=== PATIENT | male | born 1970 | race Caucasian/White ===

== ENCOUNTER → 2020-10-22 12:40 | Outpatient (BNVA) | payer MEDICAID, SELFPAY | PROVIDERS: PCP Internal Medicine; Referring Provider Internal Medicine; Visit Provider Physician Assistant | DX: Z12.11 Encounter for screening for malignant neoplasm of colon (principal); Z78.9 Other specified health status | CPT/HCPCS: 99202 ==

== ENCOUNTER 2020-12-24 07:10 | Day surgery (SDC) | payer MEDICAID, SELFPAY ==
[2020-12-24 07:24] VITALS: BP 129/81; PULSE 70; RESP 16; TEMP 35.9; O2SAT 97; BMI 27.4
--- NOTE | 2020-12-24 07:55 | P.CONAN_ITS ---
[facility] Active Problems Active Problems: All Active Problems (Updated 12/17/20 @ 14:44 by Anjelica srinivasan, RN) Encounter for screening colonoscopy (Acute) Manager Motor arranged (Acute) Poor historian (Acute) Past Medical History Medical History (Updated 12/17/20 @ 14:44 by Anjelica Henao, RN) Anxiety and depression Arthritis History of back pain Hyperlipidemia Right shoulder pain Vitamin D deficiency Family History Family History Brother Cancer Maternal Aunt Cancer Diabetes Family history of problems with anesthesia: No Surgical History Surgical History (Updated 12/17/20 @ 13:27 by Anjelica Henao RN) History of bilateral carpal tunnel release History of left inguinal hernia repair History of Problems with Anesthesia: No Social History Social History (Updated 10/22/20 @ 13:38 by Felisa Egan PA-C) Household Members: Significant Other Alcohol intake: current Patient Tobacco Use Status: Never used Tobacco Use of substances other than those prescribed or required for medical reasons: No Are you DNR?: No Advance Directives: No Advance Directives Information Provided: Yes Current occupational status: employed Meds Allergies Allergy/AdvReac Type Severity Reaction Status Date / Time No Known Allergies Allergy Verified 10/22/20 12:57 Home Medications Medication Instructions Recorded Confirmed Last Taken Type atorvastatin 80 mg tablet 80 mg PO DAILY 12/17/20 12/17/20 Unknown History cyclobenzaprine 10 mg tablet 10 mg PO BEDTIME 12/17/20 12/17/20 Unknown History ergocalciferol (vitamin D2) 1,250 1,250 mcg PO QWEEK 12/17/20 12/17/20 Unknown History mcg (50,000 unit) capsule (Vitamin D2) ibuprofen 400 mg tablet 400 mg PO Q6H PRN 12/17/20 12/17/20 Unknown History Exam Exam Date and Time: December 24, 2020 0755 Height,Weight and Vital Signs: Height 5 ft 6 in Weight 77.111 kg Last Vital Signs Temp 96.7 F L 12/24/20 07:24 Pulse 70 12/24/20 07:24 Resp 16 12/24/20 07:24 BP 129/81 12/24/20 07:24 Pulse Ox 97 12/24/20 07:24 Airway Mallampati Class: III TM Dist: >3cm Neck ROM: Full Heart: rrr Lungs: cta Assessment and Plan Assessment Anesthesia Assessment: Anesthesia Plan Discussed and Chart Reviewed Final Anesthetic Review Family History of Problems with Anesthesia: No History of Problems with Anesthesia: No NPO: Yes ASA Class: III Final Preanesthetic Review: No Changes in Pt Med Stat, Meds/Allgs Chart Reviewed and Consent Obtained/Reviewed Patient Risk: Intermediate Procedure Risk: Intermediate Anesthetic Plan Anesthetic Plan: MAC: Disposition: Standard PACU
[2020-12-24] MEDS: Lactated Ringers 1,000 ML 50 ML IVCONT (08:33)
--- NOTE | 2020-12-24 09:14 | P.HPSUR_ITS ---
Pre-Procedural Eval Section A Date of Service: 12/24/20 Section B Chief Complaint: screening Relevant Family History (Specify if Yes): No Relevant Social History: None Present Medications: see Short Stay Collaborative assessment Medical History: Significant History (Anxiety and depression Arthritis History of back pain Hyperlipidemia Right shoulder pain Vitamin D deficiency) History of Previous Operations: Relevant previous surgery/procedure and date(s) (inguinal hernia, carpal tunnel) Allergies: Allergies Allergy/AdvReac Type Severity Reaction Status Date / Time No Known Allergies Allergy Verified 10/22/20 12:57 Review of Systems Sugical H&P ROS: Negative: Constitution, Cardiovascular, Respiratory, Neurological, Psychiatric, Hem-Onc, Allergic/Immunologic, Gastrointestinal, Genitourinary, Musculoskeletal, Integumentary, Endocrine and Eyes/Ears/Nose /Throat Exam Surgical H&P Exam: Normal: HEENT, Normal: Heart, Normal: Lungs, Normal: Extremities, Normal: Abdomen, Normal: Skin and Normal: Neurological Plan Diagnosis/Plan: Unchanged I have reviewed the history and physical and performed a pertinent physical examination on my patient. No changes have occurred unless specified.
--- NOTE | 2020-12-24 09:16 | P.BOP_ITS ---
Brief Operative Note Date of Service: 12/24/20 Pre-op diagnosis: screening Post-op diagnosis: same Procedure: see op note Surgeon: Scott Navarro MD Anesthesia: MAC Was an Mgmt Consultant used for this Procedure?: No Estimated blood loss (mL): 0 Condition: stable Disposition: PACU
--- NOTE | 2020-12-24 09:16 | P.OP_ITS ---
Operative Note Operative Note Date of Service: 12/24/20 Narrative: Operative Information Procedure Description: Colonoscopy COLONOSCOPY Instrument: Olympus variable stiffness pediatric scope 190L Colonoscopy Monitoring: Vital signs and clinical assessment, continuous EKG monitoring, Pulse oximetry, Carbon Dioxide monitoring and blood pressure monitoring were done throughout the procedure. Colon withdrawal time was 10 minutes. Procedure: The patient was placed in the left lateral decubitis position and pre-procedure medications were administered. After a digital rectal examination of the ano-rectum, the video colonoscope was inserted into the rectum and advanced through the colon to the cecum/TI. The colonoscope was slowly withdrawn in a retrograde panoramic fashion and the colon mucosa was carefully examined including a retroflexed view of the rectum. Findings and interventions are described below. Procedure Difficulty:moderate Findings: Terminal Ileum-not seen due to poor prep Cecum: partially seen due to poor prep and thick debris Ascending Colon: normal Transverse Colon -normal Descending Colon:normal Sigmoid Colon: normal Rectum: Retroflexion with small internal hemorrhoids, grade I Anorectum - normal Colon preparation: [place] Bowel Preparation Scale Right colon; 1 Transverse colon: 2 Left colon; 3 (0 = Unprepared colon segment with mucosa not seen due to solid stool that cannot be cleared. 1 = Portion of mucosa of the colon segment seen, but other areas of the colon segment not well seen due to staining, residual stool and/or opaque liquid. 2 = Minor amount of residual staining, small fragments of stool and/or opaque liquid, but mucosa of colon segment seen well. 3 = Entire mucosa of colon segment seen well with no residual staining, small fragments of stool or opaque liquid) Impression and Post Procedure Diagnosis: internal hemorrhoids Plan: High fiber diet leaflet Avoid straining at stool, epsom salts and sitz bath, anusol supps or cream Repeat Colonoscopy in 1 year due to poor right sided prep or earlier if clinical ly indicated. Next time emphasize compliance with prep instructions as he ate pizza yesterday Above findings were reviewed with the patient and relevant handouts were provided if indicated.
[2020-12-24 09:17] VITALS: BP 96/64; PULSE 80; RESP 16; TEMP 36.9; O2SAT 92
[2020-12-24 09:35] VITALS: BP 103/68; PULSE 77; RESP 18; TEMP 36.7; O2SAT 95
== END 2020-12-24 10:20 | disposition home or self-care (01) ==
PROVIDERS: Visit Provider Internal Medicine Gastroenterology
PROC: 0DJD8ZZ Inspection of Lower Intestinal Tract, Via Natural or Artificial Opening Endoscopic (ICD-10-PCS; CPT 45378; principal; 2020-12-24 08:30)
DX: Z12.11 Encounter for screening for malignant neoplasm of colon (principal); K64.0 First degree hemorrhoids
CPT/HCPCS: 45378

== ENCOUNTER 2024-04-26 10:09 | Outpatient (REF) | payer MEDICAID, SELFPAY ==
--- OUTSIDE RECORDS SUMMARY | 2024-04-26 10:52 | XMS_ITS | Encounter Summary ---
Author Organization [employer] Address [address] [place] [address] Care Team Providers Care Batter Mixer Name Role Phone Tram Porter MD Primary Care Provider + Reason for Referral * Consultation (Routine) - Pending Review Specialty Diagnoses / Procedures Referred By Arslan ring Referred To Contact Gastroenterology Diagnoses Screening for colorectal cancer Tram Porter MD [address] [place] [address] Phone: tel: fax: Referral ID Status Reason Start Date Expiration Date Visits Requested Visits Authorized [id number] Pending Review Specialty Services Required 04/26/2024 04/26/2025 1 1 Reason for Visit * Reason Comments Annual Exam Encounter Details Date Type Department Care Team (Late st Contact Info) Description 04/26/2024 9:45 AM EST Office Visit [facility] [address] [place] [phone] Tram Porter MD [address] [place] [phone] Carpal tunnel syndrome of right wrist (Primary Dx); Other hyperlipidemia; Vitamin D deficiency; Screening for colorectal cancer; Elevated blood pressure reading; Overweight; Encounter for assessment of STD exposure; Dietary counseling; Exercise counseling Social History Tobacco Use Types Packs/Day Years Used Date Smoking Tobacco: Former Cigarettes Smokeless Tobacco: Never Alcohol Use Standard Drinks/Week Comments Yes 12 (1 standard drink = 0.6 oz pu re alcohol) On weekends only Alcohol Answer Date Recorded Q1: How often do you have a drink containing alc ohol? 3 04/26/2024 Q2: How many drinks containi ng alcohol do you have on a typical day when you are drinking? 5 04/26/2024 Q3: How often do you have six or more drinks on one occasion? 4 04/26/2024 Housing Stability Answer Date Recorded What is your housing situation today? I have jayda saab 04/13/[address] you li ve. Do you have problems with any of the following? None of the above 04/13/2024 Food Insecurity Answer Date Recorded Within the past 12 months, y ou worried that your food would run out before you got money to buy more: Never True 04/13/2024 Within the past 12 months,th e food you bought just didn't last and you didn't have enough money to get more: Never True Transportation Answer Date Recorded In the past 12 months, has l ack of transportation kept you from medical appts, meetings, work or from getting things needed for daily living? No 04/13/2024 Utilities Answer Date Recorded In the past 12 months, has t he electric, gas, oil or water company threatened to shut off services in your home? No 04/13/2024 Depression Answer Date Recorded Patient Health Questionnaire-2 Score 0 04/26/2024 Internet Access Answer Date Recorded Internet Access Q1 Yes 04/13/2024 Internet Access Q2 Not on file 04/13/2024 Sex and Gender Information Value Date Recorded Sex Assigned at Male 01/11/2022 10:20 AM EDT Legal Sex Male 10:20 AM EDT Gender Identity Male 01/11/2022 10:20 AM EDT Sexual Orientation Straight 01/11/2022 10 :20 AM EDT documented as of this encounter Last Filed Vital Signs Vital Sign Reading Time Taken Comments Blood Pressure 120/87 04/26/2024 9:56 AM EST Pulse 77 04/26/2024 9:35 AM EST Temperature 36.1 ??C (97 ??F) 04/26/2024 9:35 AM EST Respiratory Rate - - Oxygen Saturation 98% 04/26/2024 9:35 AM EST Inhaled Oxygen Concentration - - Weight 86.4 kg (190 lb 6 oz) 04/26/2024 9:35 AM EST Height 170.2 cm (5' 7 ) 04/26/2024 9:35 AM EST Body Mass Index 29.82 04/26/2024 9:35 AM EST documented in this encounter Miscellaneous Notes * Assessment & Plan Note - Tram Porter MD - 04/26/2024 10:51 AM EST Associated Problem(s): Overweight Discussed re weight reduction options including exercise, life style modifications, diet. Recommended to decrease soda and sugary beverage consumption, increase protein intake with meals (at least 1 portion of protein with each meal) to assist with satiety, increase dietary fiber Recommended at least 150 min/week of moderate intensity exercise. FU in 2-3m * Assessment & Plan Note - Tram Porter MD - 04/26/2024 10:50 AM EST Associated Problem(s): Screening for colorectal cancer Referred to GI for repeat colonoscopy due to incomplete prep on previous one. * Assessment & Plan Note - Tram Porter MD - 04/26/2024 10:50 AM EST Associated Problem(s): Hyperlipidemia Off medication at this time, will check lipid profile. Recommended moderate amount of exercise and increase consumption of fruit, vegetables, fish and high fiber foods. Should decrease consumption of highly saturated fats or trans fats. * Assessment & Plan Note - Tram Porter MD - 04/26/2024 10:49 AM EST Associated Problem(s): Vitamin D deficiency Check vitamin D levels. Advise regarding daily outdoor exercise for at least 15 minutes. * Assessment & Plan Note - Tram Porter MD - 04/26/2024 10:49 AM EST Associated Problem(s): Elevated blood pressure reading Unclear if related to pain. Check BP at home 3 times per week and follow-up with me in 4 to 6 weeks Counseled re low salt diet/increase moderate physical activity. Non smoking patient. Referred to eye clinic * Assessment & Plan Note - Tram Porter MD - 04/26/2024 10:48 AM EST Associated Problem(s): Carpal tunnel syndrome of right wrist Advised to use braces as much as he can on the regular basis, take Tylenol as needed Follow-up at next visit documented in this encounter Plan of Treatment Upcoming Encounters Date Type Department Care Team (Late st Contact Info) Description 06/26/2024 10:30 AM EDT Office Visit [facility] [address] [place], [place] [phone] Tram Porter MD [address] [place] [address] Scheduled Orders Name Type Priority Associated Diagnoses Orde r Schedule Lipid Panel with Reflex to Direct LDL Lab Routine Other hyperlipidemia Elevated blood pressure reading Expected: 04/26/2024 (Approximate), Expires: 04/26/2025 TSH with Reflex to Free T4 Lab Routine Elevated blood pressure reading Expected: 04/26/2024 (Approximate), Expires: 04/26/2025 T-SPOT??.TB Lab Routine Elevated blood pressure reading Expected: 04/26/2024 (Approximate), Expires: 04/26/2025 Comprehensive Metabolic Panel Lab Routine Elevated blood pressure reading Expected: 04/26/2024 (Approximate), Expires: 04/26/2025 CBC auto differential Lab Routine Elevated blood pressure reading Expected: 04/26/2024 (Approximate), Expires: 04/26/2025 Syphilis Screen Lab Routine Encounter for assessment of STD exposure Expected: 04/26/2024 (Approximate), Expires: 04/26/2025 HIV-1/2 Antigen and Antibodies, Fourth Generation, with Reflexes Lab Routine Encounter for assessment of STD exposure Expected: 04/26/2024 (Approximate), Expires: 04/26/2025 Hepatitis Panel, General Lab Routine Encounter for assessment of STD exposure Expected: 04/26/2024 (Approximate), Expires: 04/26/2025 Chlamydia/N. Gonorrhoeae RNA, TMA, Urogenitial Microbiology Routine Encounter for assessment of STD exposure Ordered: 04/26/2024 Vitamin D, 25-Hydroxy, Total, Immunoassay Lab Routine Vitamin D deficiency Expected: 04/26/2024 (Approximate), Expires: 04/26/2025 Scheduled Referrals Name Type Priority Associated Diagnoses Order Schedule Referral to Gastroenterology Outpatient Referral Routine Screening for colorectal cancer Expected: 04/26/2024 (Approximate), Expires: 04/26/2025 documented as of this encounter Visit Diagnoses Diagnosis Carpal tunnel syndrome of right wrist- Primary Other hyperlipidemia Vitamin D deficiency Screening for colorectal cancer Elevated blood pressure reading Elevated blood pressure reading without diagnosis of hypertension Overweight Encounter for assessment of STD exposure Dietary counseling Dietary surveillance and counseling Exercise counseling documented in this encounter Care Teams Batter Mixer Relationship Specialty Start Date End Date Trma Porter MD [address] [place] [phone] PCP - General Family Medicine 09/13/18 documented as of this encounter
--- OUTSIDE RECORDS SUMMARY | 2024-04-26 10:52 | XMS_ITS | Encounter Summary ---
Author Organization [facility] Address [address] [facility] [address] [place] [address] Care Team Providers Care Advertising Writer Name Role Phone Tram Porter MD Primary Care Provider + Encounter Details Date Type Department Care Team (Late st Contact Info) Description 08/27/2022 Abstract [facility] [address] [place] [phone] Tram Porter MD [address] [place] [address] [phone] Social History Tobacco Use Types Packs/Day Years Used Date Smoking Tobacco: Never Smokeless Tobacco: Never Sex and Gender Information Value Date Recorded Sex Assigned at Male 01/11/2022 10:20 AM EDT Legal Sex Male 10:20 AM EDT Gender Identity Male 01/11/2022 10:20 AM EDT Sexual Orientation Straight 01/11/2022 10 :20 AM EDT documented as of this encounter Plan of Treatment Upcoming Encounters Date Type Department Care Team (Late Contact Info) Description 06/26/2024 10:30 AM EDT Office Visit [facility] [address] [place] [phone] Tram Porter MD [address] [place] [phone] documented as of this encounter Procedures Procedure Name Priority Date/Time Associated Diagnosis Comments COLONOSCOPY Routine 12/24/2020 8:49 AM EDT documented in this encounter Results * Colonoscopy (12/24/2020 8:49 AM EDT) Colonoscopy Normal Normal Narrative Jie, Luz - 12/24/2020 8:49 AM EDT Recommended 1 year follow up us Historical Provider HEALTH MAINTENANCE Edited Result - Final documented in this encounter Visit Diagnoses Not on filedocumented in this encounter Care Teams Advertising Writer Relationship Specialty Start Date End Date Tram Porter MD [address] [place] [phone] PCP - General Family Medicine 09/13/18 documented as of this encounter
--- OUTSIDE RECORDS SUMMARY | 2024-04-26 10:52 | XMS_ITS | Clinical Summary ---
Author Organization [facility] Address [address] [place] [address] Care Team Providers Care Senior Mechanical Estimator Name Role Phone Sia Arriaza MD Primary Care Provider [phone] Allergies No known active allergies Medications diclofenac (VOLTAREN) 75 mg EC tablet Take 75 mg by mouth 2 times daily. Active Active Problems Problem Noted Date Diagnosed Date Lumbar spondylosis 06/22/2016 Hyperlipidemia 12/16/2015 Hand numbness 02/23/2010 Low back pain 02/23/2010 Overview (03/12/2024): Patient has low back pain since 2007. Patient describes radiation of the pain to the right leg. No weakness and no GI or complaints Immunizations Name Administration Dates Next Due Influenza trivalent, with pr eservative (Fluzone; Afluria) 6mo and older 01/15/2013,02/23/2010 Tdap Tetanus diptheria acell ular pertussis (Boostrix; Adacel) 7yo and older 02/23/2010 Surgical History Surgery Date Site/Laterality Comments OTHER SURGICAL HISTORY 2013 PROCEDURE: ---- OTHER ----; COMMENT: CTS b/l OTHER SURGICAL HISTORY 2014 PROCEDURE: ---- OTHER ----; COMMENT: left hernia Medical History Medical History Date Comments Cocaine abuse ([facility]) 09/21/2011 DX:Cocai ne abuse ([facility]) Hyperlipidemia 12/16/2015 DX:Hyperlipidemi a Lumbar spondylosis 06/22/2016 DX:Lumbar spo ndylosis Family History Medical History Relation Name Comments Heart attack Father age 32 Cataracts Maternal Grandmother Other cancer Maternal Grandmother stomach Diabetes Mother brother Hypertension Mother Blindness Neg Hx Glaucoma Neg Hx Macular degeneration Neg Hx Strabismus Neg Hx Relation Name Status Comments Brother Alive High cholestero l Daughter Alive Father [place] Maternal Grandmother Mother Alive DM, HTN Sister Alive Social History Tobacco Use Types Packs/Day Years Used Date Smoking Tobacco: Former Cigarettes Smokeless Tobacco: Never Alcohol Use Standard Drinks/Week Comments Yes 0 (1 standard drink = 0.6 oz pur e alcohol) Sex and Gender Information Value Date Recorded Sex Assigned at Not on file Legal Sex Male 12:59 AM EST Gender Identity Not on file Sexual Orientation Not on file Obstetrics History Plan of Treatment Health Maintenance Due Date Last Done Comments Hepatitis B Vaccines (1 of 3 - 19+ 3-dose series) 01/31/1988 Pneumococcal Vaccine: 50+ Years (1 of 1 - PCV) 2019 Zoster Vaccines (1 of 2) 2019 DTaP,Tdap,and Td Vaccines (2 - Td or Tdap) 02/24/2020 02/23/2010 COVID-19 Vaccine (2023-2 5 season) 2023 Influenza Vaccine (#1) 2023 3, 02/23/2010 Cholesterol Screening (Lipid Panel) 03/12/2024 12/08/2015 Colorectal Cancer Screening: Colonoscopy 03/12/2024 Depression Screening 03/12/2024 Social Influencers of Health Screening 03/12/2024 HIV Screening Completed 12/08/2015 Hepatitis C Screening Completed 12/08/2015 HIB Vaccines Aged Out No longer eligi ble based on patient's age to complete this topic HPV Vaccines Aged Out No longer eligi ble based on patient's age to complete this topic Hepatitis A Vaccines Aged Out No long er eligible based on patient's age to complete this topic IPV Vaccines Aged Out No longer eligi ble based on patient's age to complete this topic MMR Vaccines Aged Out No longer eligi ble based on patient's age to complete this topic Meningococcal ACWY Vaccine Aged Out N o longer eligible based on patient's age to complete this topic Meningococcal B Vacine Aged Out No lo nger eligible based on patient's age to complete this topic Pneumococcal Vaccine: Pediatrics (0 to 5 Years) and At-Risk Patients (6 to 64 Years) Aged Out No longer eligible b ased on patient's age to complete this topic RSV Immunization Patients Under 20 months Aged Out No longer eligible b ased on patient's age to complete this topic Varicella Vaccines Aged Out No longer eligible based on patient's age to complete this topic Procedures Procedure Name Priority Date/Time Associated Diagnosis Comments HEPATITIS C SCREENING Routine 12/08/2015 HIV SCREENING Routine 12/08/2015 LIPID PANEL Routine 12/08/2015 from Last 3 Months or Most Recently Relevant to Health Maintenance Results * HIV Screening (12/08/2015) HIV Screening Abstracted [facility] Provider HEALTH MAINTENANCE Final Result * Hepatitis C Screening (12/08/2015) Pathologist [facility] Hepatitis C Screening Abstracted [facility] Provider HEALTH MAINTENANCE Final Result * (ABNORMAL) Lipid panel (12/08/2015) Pathologist [facility] LDL/HDL Ratio 4 0 - 4 Triglycerides 171(A) 0 - 150 mg/dL Cholesterol 304(A) 0 - 200 mg/dL HDL 69 >=40 mg/dL LDL Cholesterol 201(A) 0 - 100 mg/dL Blood Venous blood specimen / Unknown [facility] Provider LAB BLOOD ORDERABLES Bibiana l Result from Last 3 Months or Most Recently Relevant to Health Maintenance Care Teams Senior Mechanical Estimator Relationship Specialty Start Date End Date Sia Arriaza MD [address] [place] [address] PCP - General Internal Medicine 10/19/16
--- OUTSIDE RECORDS SUMMARY | 2024-04-26 10:52 | XMS_ITS | Encounter Summary ---
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 No 04/13/2024 Internet Access Answer Date Recorded Internet Access [...] Description 06/26/2024 10:30 AM EDT Office Visit [facility] MEDICINE [address] [place] [address] Tram Porter MD [address] [place] [phone] Pending Results Name Type Priority Associated Diagnoses Date /Time OCT, Optic Nerve - OU - Both Eyes Ophthalmology Routine Suspicious optic nerve cupping of both eyes 04/11/2024 4:03 PM EST documented as of this encounter Visit Diagnoses Diagnosis Suspicious optic nerve cupping of both eyes- Primary Dry eyes, bilateral Presbyopia documented in this encounter Care Teams Operations Program Manager Relationship Specialty Start Date End Date Tram Porter MD [address] [place] [phone] PCP - General Family Medicine 09/13/18 documented as of this encounter
--- OUTSIDE RECORDS SUMMARY | 2024-04-26 10:52 | XMS_ITS | Encounter Summary ---
Author Organization [employer] Address [address] [facility] [address] [place] [address] Care Team Providers Care Flight Engineer Helicopter Name Role Phone Tram Porter MD Primary Care Provider + Encounter Details Date Type Department Care Team (Latest Contact Info) Description 04/26/2024 Travel Social History Tobacco Use Types Packs/Day Years [...] is your housing situation today? I have jaydajules saab 04/13/[address] you [...] Description 06/26/2024 10:30 AM EDT Office Visit [facility] MEDICINE [address] [place], [place] [phone] Tram Porter MD [address] [place] [phone] documented as of this encounter Visit Diagnoses Not on filedocumented in this encounter Care Teams Flight Engineer Helicopter Relationship Specialty Start Date End Date Tram Porter MD [address] [place] [address] [phone] PCP - General Family Medicine 09/13/18 documented as of this encounter
--- OUTSIDE RECORDS SUMMARY | 2024-04-26 10:52 | XMS_ITS | Clinical Summary ---
Author Organization [employer] Address [address] [facility] 7[address] [place] [address] Care Team Providers Care Manager Food Safety Name Role Phone Tram Porter MD Primary Care Provider + Allergies No known active allergies Medications atorvastatin (Lipitor) 80 MG tablet Take 1 tablet by mouth at bed time. 1 Active cyclobenzaprine (Flexeril) 10 MG tablet take 1-2 tablet by oral qhs 1 Active ibuprofen 400 MG tablet take 1-2 tablet by oral route every 4 - 6 hours as needed 1 Active ergocalciferol (Vitamin D-2) 1.25 MG (56517 UT) capsule take 1 capsule by oral route every week 1 Active nicotine polacrilex (Nicorette) 4 MG gum DISCONTINUE 2 Active amoxicillin (Amoxil) 500 MG capsule Take 1 tab po bid for 10 days 20 capsule 5 Active ibuprofen 600 MG tablet Take 1 tablet (600 mg) by mouth every 8 (eight) hours if needed for moderate pain or fever. 30 tablet 5 04/19/19 25 Active Problems Problem Noted Date Diagnosed Date Screening for colorectal cancer 04/26/2024 Assessment & Plan (04/26/2024 10:50 AM EST): Referred to GI for repeat colonoscopy due to incomplete prep on previous one. Elevated blood pressure reading 04/26/2024 Assessment & Plan (04/26/2024 10:50 AM EST): Unclear if related to pain. Check BP at home 3 times per week and follow-up with me in 4 to 6 weeks Counseled re low salt diet/increase moderate physical activity. Non smoking patient. Referred to eye clinic Overweight 04/26/2024 Assessment & Plan (04/26/2024 10:51 AM EST): Discussed re weight reduction options including exercise, life style modifications, diet. Recommended to decrease soda and sugary beverage consumption, increase protein intake with meals (at least 1 portion of protein with each meal) to assist with satiety, increase dietary fiber Recommended at least 150 min/week of moderate intensity exercise. FU in 2-3m Encounter for assessment of STD exposure 025 Viral upper respiratory infection 03/20/2024 Assessment & Plan (03/20/2024 6:18 PM EST): Strep negative. -No evidence of respiratory distress. Symptoms mild. -No evidence of dehydration. -Supportive care advised. -Isolation recommendations discussed. -ER precautions discussed. -Seek medical attention for worsening symptoms. Carpal tunnel syndrome of right wrist Assessment & Plan (04/26/2024 10:48 AM EST): Advised to use braces as much as he can on the regular basis, take Tylenol as needed Follow-up at next visit Chronic right shoulder pain Hyperlipidemia Assessment & Plan (04/26/2024 10:50 AM EST): Off medication at this time, will check lipid profile. Recommended moderate amount of exercise and increase consumption of fruit, vegetables, fish and high fiber foods. Should decrease consumption of highly saturated fats or trans fats. Vitamin D deficiency Assessment & Plan (04/26/2024 10:49 AM EST): Check vitamin D levels. Advise regarding daily outdoor exercise for at least 15 minutes. Encounters Date Type Department Care Team Description 04/26/2024 9:45 AM EST Office Visit [facility] [address] [place] [phone] Tram Porter MD Carpal tunnel syndrome of right wrist (Primary Dx); Other hyperlipidemia; Vitamin D deficiency; Screening for colorectal cancer; Elevated blood pressure reading; Overweight; Encounter for assessment of STD exposure; Dietary counseling; Exercise counseling 04/26/2024 Travel 04/13/2024 Patient Outreach [facility] [address] [place] [address] Tram Porter MD Pre-visit Planning (SDOH screening negative and tobacco screening negative) 04/11/2024 3:00 PM EST Office Visit [facility] OPTOMETRY [address] [place] [address] Eugene, Natalee, OD 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); Dry eyes, bilateral; Presbyopia 04/11/2024 Travel 03/20/2024 6:00 PM EST Office Visit [facility] [address] [place] [address] Ary Grant MD Viral upper respiratory infection (Primary Dx); Sore throat from Last 3 Months Family History Medical History Relation Name Comments Esophageal cancer Brother Cancer Maternal Grandmother gastric Diabetes Mother Relation Name Status Comments Brother Father Maternal Grandmother Mother Social History Tobacco Use Types Packs/Day Years [...] Orientation Straight 01/11/2022 10 :20 AM EDT Last Filed Vital Signs Vital Sign Reading Time Taken Comments Blood Pressure 120/87 04/26/2024 9:56 AM EST Pulse 77 04/26/2024 9:35 AM EST Temperature 36.1 ??C (97 ??F) 04/26/2024 9:35 AM EST Respiratory Rate 18 03/20/2024 5:50 PM EST Oxygen Saturation 98% 04/26/2024 9:35 AM EST Inhaled Oxygen Concentration - - Weight 86.4 kg (190 lb 6 oz) 04/26/2024 9:35 AM EST Height 170.2 cm (5' 7 ) 04/26/2024 9:35 AM EST Body Mass Index 29.82 04/26/2024 9:35 AM EST Plan of Treatment Upcoming Encounters Date Type Department Care Team (Late st Contact Info) Description 06/26/2024 10:30 AM EDT Office Visit [facility] [address] [place] [address] Tram Porter MD [address] [place] [address] Health Maintenance Due Date Last Done Comments CT Colonography 1969 FIT DNA/Cologuard 1970 FIT 1970 FOBT 1970 HIV Screening 1970 Sigmoidoscopy 1969 Hepatitis C Screening 1987 Hepatitis B Vaccines (1 of 3 - 19+ 3-dose series) 01/31/1988 Pneumococcal Vaccine: 50+ Years (1 of 1 - PCV) 2019 Zoster Vaccines (1 of 2) 2019 DTaP/Tdap/Td Vaccines (2 - Td or Tdap) 02/24/2020 02/23/2010 Colonoscopy 12/24/2021 12/24/2020 Colorectal Cancer Screening 12/24/2021 COVID-19 Vaccine (5 - season) 2023 02/28/2022, 02/28/2021, 08/04/2020, Additional history exists Influenza Vaccine (#1) 2023 6, 01/15/2013, 02/23/2010 SDOH Screening 04/13/2025 04/13/2024 Alcohol/Substance Use Screening 04/26/2025 04/26/2024 Depression Screening 04/26/2025 04/26/2024, 04/26/19 Tobacco Screening 04/26/2025 04/26/2024 Lipid Panel 05/27/2025 05/27/2020 RSV Patients and Patients Aged 60 years or older (1 - 1-dose 75+ series) 01/31/2044 HIB Vaccines Aged Out No longer eligi [...] patient's age to complete this topic Meningococcal Vaccine Aged Out No jim jacek eligible based on patient's age to complete this topic RSV under 20 months Aged Out No longe r eligible based on patient's age to complete this topic Rotavirus Vaccines Aged Out No longer eligible based on patient's age to complete this topic Procedures Procedure Name Priority Date/Time Associated Diagnosis Comments POCT INFLUENZA A (ID NOW RAPID MOLECULAR) Routine 03/20/2024 6:35 PM EST Viral upper respiratory infection POCT INFLUENZA B (ID NOW RAPID MOLECULAR) Routine 03/20/2024 6:34 PM EST Viral upper respiratory infection POCT RAPID COVID ANTIGEN Routine 03/20/2024 6:33 PM EST Viral upper respiratory infection POC STEVE ID NOW STREP A Routine 03/20/2024 5:56 PM EST Sore throat [facility] COLONOSCOPY Routine 12/24/2020 8:49 AM EDT LIPID PANEL, STANDARD Routine 05/27/2020 11:07 AM EDT from Last 3 Months or Most Recently Relevant to Health Maintenance Results * POCT Rapid Influenza A STEVE ID NOW (03/20/2024 6:35 PM EST) [facility] Influenza A Negative Negative, Indeterminate [facility] QC Media Lot # [id number] [facility] Lot# Expiration Date [id number] [facility] Swab 03/20/2024 6:35 PM EST Ary Grant MD POINT OF CARE TEST ENTER/E DIT ORDERABLES Final Result Performing Organization Address City/[facility]/ZIP Co de Phone Number [facility] [address] [place] [phone] * POCT Rapid Influenza B STEVE ID NOW (03/20/2024 6:34 PM EST) [facility] Influenza B Negative Negative, Indeterminate [facility] QC Media Lot # [id number] [facility] Lot# Expiration Date [id number] [facility] Swab 03/20/2024 6:34 PM EST Ary Grant MD POINT OF CARE TEST ENTER/E DIT ORDERABLES Final Result Performing Organization Address City/[facility]/ZIP Co de Phone Number [facility] [address] [place] [phone] * POCT Rapid Covid-19 BinaxNOW (03/20/2024 6:33 PM EST) Rapid COVID Ag Negative QC Media Lot # [id number] Lot# Expiration Date 826 Swab 03/20/2024 6:33 PM EST us Ary Grant MD POINT OF CARE TEST ENTER/E DIT ORDERABLES Final Result * POCT Rapid Strep A STEVE ID NOW (03/20/2024 5:56 PM EST) Rapid Strep A Screen Negative Negative, None Detected QC Media Lot # [id number] Lot# Expiration Date [id number] Swab 03/20/2024 5:56 PM EST Ary Grant MD POINT OF CARE TEST ENTER/E DIT ORDERABLES Final Result * Hm Colonoscopy (12/24/2020 8:49 AM EDT) Pathologist [facility] Colonoscopy Normal Normal Narrative Luz Ceron - 12/24/2020 8:49 AM EDT Recommended 1 year follow up [facility] Provider HEALTH MAINTENANCE Edited Result - Final * (ABNORMAL) LIPID PANEL, STANDARD (05/27/2020 11:07 AM EDT) Pathologist [facility] Chol/HDLC Ratio 4.2 <5.0 (calc) [facility] Cholesterol, Total 241(H) <200 mg/dL [facility] HDL Cholesterol 57 > OR = 40 mg/dL [facility] LDL Cholesterol 158(H) mg/dL (calc) [facility] Comment: Reference range: <100 ?? Desirable range <100 mg/dL for primary prevention; ?? <70 mg/dL for patients with CHD or diabetic patients ?? with > or = 2 CHD risk factors. ?? LDL-C is now calculated using the Sabas ?? calculation, which is a validated novel method providing ?? better accuracy than the Friedewald equation in the ?? estimation of LDL-C. ?? Buster MEDEIROS et al. KEITH. 2013;310(19): 5147-5940 ?? (http://education.[employer]/faq/FWB623) Non-HDL Cholesterol 184(H) <130 mg/dL (calc) [facility] Comment: For patients with diabetes plus 1 major ASCVD risk ?? factor, treating to a non-HDL-C goal of <100 mg/dL ?? (LDL-C of <70 mg/dL) is considered a therapeutic ?? option. Triglycerides 139 <150 mg/dL [facility] 05/27/2020 11:0 7 AM EDT us Tram Porter MD LAB BLOOD ORDERABLES Fin al Result [facility] [address] from Last 3 Months or Most Recently Relevant to Health Maintenance [facility] Care Teams Manager Food Safety Relationship Specialty Start Date End Date Tram Porter MD [address] [place] [phone] PCP - General Family Medicine 09/13/18
--- OUTSIDE RECORDS SUMMARY | 2024-04-26 10:52 | XMS_ITS | Encounter Summary ---
Author Organization [employer] Address [address] [facility] 7t [place] [address] Care Team Providers Care Manufacturing Chief Engineer Name Role Phone Tram Porter MD Primary Care Provider + Reason for Visit * Reason Comments Pre-visit Planning SDOH screening negat dalia and tobacco screening negative Encounter Details Date Type Department Care Team ([facility] st Contact Info) Description 04/13/2024 Patient Outreach [facility] [address] [place] [address] Tram Porter MD [address] [place], [place] [phone] Pre-visit Planning (SDOH screening negative and tobacco screening negative) Social History Tobacco Use Types Packs/Day Years Used Date Smoking Tobacco: Never Smokeless Tobacco: Never Housing Stability Answer Date Recorded What is your housing situation today? I have jayda katiana 04/13/[address] you li [...] AM EDT documented as of this encounter Progress Notes * Zohreh Iraida - 04/13/2024 9:48 AM EST CC Zohreh placed successful outbound call to patient for pre-visit planning. Patient name and confirmed. Patient confirms appt date and time, and has transportation. Biggest concern for appointment at this time is none Patient advised to bring to appointment a photo id and insurance card. Appropriate screenings completed in anticipation of appointment. documented in this encounter Plan of Treatment Upcoming Encounters Date Type Department Care Team (Late st Contact Info) Description 06/26/2024 10:30 AM EDT Office Visit [facility] [address] [place] [phone] Tram Porter MD [address] [place] [phone] documented as of this encounter Visit Diagnoses Not on filedocumented in this encounter Care Teams Manufacturing Chief Engineer Relationship Specialty Start Date End Date Tram Porter MD [address] [place] [phone] PCP - General Family Medicine 09/13/18 documented as of this encounter
--- OUTSIDE RECORDS SUMMARY | 2024-04-26 10:52 | XMS_ITS | Encounter Summary ---
Author Organization [employer] Address [address] [facility] [address]t h Floor [place] [phone] Care Team Providers Care Director Toxicology Name Role Phone Tram Porter MD Primary Care Provider + Encounter Details Date Type Department Care Team (Latest Contact Info) Description 04/11/2024 Travel Social History Tobacco Use Types Packs/Day [...] Description 06/26/2024 10:30 AM EDT Office Visit [facility] MEDICINE [address] [place] [address] Tram Porter MD [address] [place] [phone] documented as of this encounter Visit Diagnoses Not on filedocumented in this encounter Care Teams Director Toxicology Relationship Specialty Start Date End Date Tram Porter MD [address] [place] [address] PCP - General Family Medicine 09/13/18 documented as of this encounter
[2024-04-26 11:30] LABS: MANUAL DIFF FLAG NO
[2024-04-26 11:35] LABS: Basophils Percent Auto 0.5 % (0-2); Eosinophils Absolute Auto 0.1 X10*3/uL (0.0-0.4); Eosinophils Percent Auto 0.9 % (0-4); Hematocrit 50.4 % (42.0-52.0); Hemoglobin 16.4 g/dl (14.0-18.0); Imm Gran Abs Auto 0.02 X10*3/uL (0.00-0.03); Imm Gran Pct Auto 0.3 % (0.0-0.4); Lymphocytes Absolute Auto 1.6 X10*3/uL (1.2-4.9); Lymphocytes Percent Auto 23.7 % (20-40); Mean Corpuscular HGB Conc 32.5 g/dl (31.0-36.0); Mean Corpuscular Hemoglobin 28.3 pg (27.0-33.0); Mean Corpuscular Volume 86.9 fL (80.0-98.0); Mean Platelet Volume 9.8 fL (9.4-12.4); Monocytes Absolute Auto 0.6 X10*3/uL (0.1-1.2); Monocytes Percent Auto 9.3 % (2-11); Neutrophils Absolute Auto 4.3 x10*3/uL (2.0-8.3); Neutrophils Percent Auto 65.3 % (45-73); Platelet Count 302 X10*3/uL (160-400); Red Cell Distribution Width 13.4 % (11.0-16.0); White Blood Count 6.5 X10*3/uL (4.8-10.8)
[2024-04-26 12:01] LABS: Alanine Aminotransferase 38 U/L (0-40); Albumin Level 4.4 g/dL (3.5-5.0); Alkaline Phosphatase 69 U/L (39-117); Anion Gap 13 (12-20); Aspartate Amino Transferase 25 U/L (5-37); Bilirubin Total 0.6 mg/dL (0.0-1.0); Blood Urea Nitrogen 18 mg/dL (9-16); Calcium 9.6 mg/dL (8.4-10.2); Carbon Dioxide 26 mmol/L (22-29); Chloride 106 mmol/L (96-108); Cholesterol 269 mg/dL (<200); Estimated Glomerular Filt Rate > 60; Glucose Random 99 mg/dL (60-115); HDL Cholesterol 59 mg/dL (>40); LDL Cholesterol Calculated 193 mg/dL (<100); Sodium 141 mmol/L (135-145); Total Protein 7.9 g/dL (6.5-8.0); Triglycerides 89 mg/dL (<150)
[2024-04-26 12:09] LABS: TSH reflex Free T4 1.71 uIU/mL (0.32-4.0); Vitamin D 25-OH Total 16.5 ng/mL (>30)
[2024-04-26 12:28] LABS: Reflex LDLD? No
[2024-04-26 12:45] LABS: Syphilis Screen Nonreactive (Nonreactive)
[2024-04-26 12:46] LABS: HBS Num1 2.05 mIU/mL (0-7.99); HBc Num1 0.14 S/CO (0.00-0.79); HBsAGNum1 0.32 S/CO (0.00-0.99); HIV AB/AG Nonreactive (Nonreactive); HIV Num 1 0.06 S/CO (0.00-0.99); Hepatitis A Antibody IgM 0.18 Index (0-0.79); Hepatitis B Core Antibody Nonreactive (Nonreactive); Hepatitis B Surface Antigen Negative (Negative); ~HepC Num1 0.22 S/CO (0.00-0.79); ~Hepatitis A Antibody IgM Nonreactive (Nonreactive); ~Hepatitis B Surface Antibody NONREACTIVE (Nonreactive); ~Hepatitis C Antibody Nonreactive (Nonreactive)
[2024-04-29 08:02] LABS: TS Negative Control Passed; TS Panel A 0; TS Panel B 0; TS Positive Control Passed; TSpotTB Negative (Negative)
== END 2024-04-26 10:10 | disposition home or self-care (01) ==
LOC: HO.HHCL 10:09
PROVIDERS: Visit Provider Internal Medicine
DX: R03.0 Elevated blood-pressure reading, without diagnosis of hypertension (principal); Z20.2 Contact with and (suspected) exposure to infections with a predominantly sexual mode of transmission; E55.9 Vitamin D deficiency, unspecified; E78.49 Other hyperlipidemia
CPT/HCPCS: 36415; 80053; 80061; 82306; 84443; 85025; 86481; 86704; 86706; 86709; 86780; 86803; 87340; 87389

== ENCOUNTER 2024-07-24 09:37 | Outpatient (REF) | payer MEDICAID, SELFPAY ==
--- NOTE | ~2024-07-24 | XR_ITS ---
EXAMINATION: XR WRIST 3 OR MORE VIEWS RIGHT HISTORY: atraumatic right wrist pain over extensor surface radial side. COMPARISON: Comparison is made with the prior examination dated 01/02/2014. FINDINGS: Four views of the right wrist including a scaphoid view are submitted. Osseous mineralization is normal. There is no fracture or dislocation. The joint spaces are preserved. The soft tissues are unremarkable. XR/XR wrist RT min 3V IMPRESSION: Unremarkable examination of the right wrist. Electronically signed by: Montez Gonzalez MD 07/24/2024 10:02 AM EDT
--- OUTSIDE RECORDS SUMMARY | 2024-07-24 10:18 | XMS_ITS | Encounter Summary ---
Author Organization [employer] Address [address] [facility] [address] [place] [address] Care Team Providers Care Plant Sciences Professor Name Role Phone Tram Porter MD Primary Care Provider + Reason for Visit * Reason Comments Wrist Pain Encounter Details Date Type Department Care Team ([facility] st Contact Info) Description 07/24/2024 9:00 AM EDT Office Visit [facility] [place] [address] [place] [address] Right wrist pain (Primary Dx); Elevated blood pressure reading in office without diagnosis of hypertension Social History Tobacco Use Types Packs/Day Years [...] Sign Reading Time Taken Comments Blood Pressure 131/90 07/24/2024 8:47 AM EDT Pulse 76 07/24/2024 8:47 AM EDT Temperature 37 ??C (98.6 ??F) 07/24/2024 8:47 AM EDT Respiratory Rate 17 07/24/2024 8:47 AM EDT Oxygen Saturation 97% 07/24/2024 8:47 AM EDT Inhaled Oxygen Concentration - - Weight 85.5 kg (188 lb 6.4 oz) 07/24/2024 8:47 A M EDT Height - - Body Mass Index 29.51 04/26/2024 9:35 AM EST documented in this encounter Plan of Treatment Upcoming Encounters Date Type Department Care Team (Late st Contact Info) Description 10/11/2024 9:00 AM EDT Office Visit [facility] [address] [place] [address] Tram Porter MD [address] [place] [address] documented as of this encounter Procedures Procedure Name Priority Date/Time Associated Diagnosis Comments XR WRIST 3+ VIEWS RIGHT Routine 07/24/2024 9:38 AM EDT Right wrist pain documented in this encounter Results * XR Wrist 3+ Views Right (07/24/2024 9:38 AM EDT) Anatomical Region Laterality Modality Upper Extremities, Wrist Right Radiogr aphic Imaging 07/24/2024 9:38 AM EDT Narrative 07/24/2024 10:04 AM EDT ?[facility] ?[address] ?[place] [address] ?XRay Report ? Signed ? Patient: Michele,Sumanth ?MR#: [id number] ? : 1970 ?Acct:[id number] ? Age/Sex: 54 / M ?ADM Date: 07/24/24 ? Loc: HO.HHCX ? Attending Dr: Wai Ramsey MD ? Ordering Physician: WAI RAMSEY MD ?? Date of Service: 07/24/24 ?? Procedure(s): XR wrist RT min 3V ?? Accession Number(s): [id number] ? cc: WAI RAMSEY MD ? EXAMINATION: ??XR WRIST 3 OR MORE VIEWS RIGHT ? HISTORY: atraumatic right wrist pain over extensor surface radial side. ? COMPARISON: Comparison is made with the prior examination dated ?? 01/02/2014. ? FINDINGS: ? Four views of the right wrist including a scaphoid view are submitted. ? Osseous mineralization is normal. ??There is no fracture or dislocation. ?? The joint spaces are preserved. ??The soft tissues are unremarkable. ? XR/XR wrist RT min 3V ?? IMPRESSION: ? Unremarkable examination of the right wrist. ? Electronically signed by: ??Montez Gonzalez MD ??07/24/2024 10:02 AM EDT ?? RP ? Dictated By: ?Montez Gonzalez MD ? Signed By: ?<Electronically signed by Montez Gonzalez MD in OV> ?07/24/24 1002 ? DD/ 0938 ? TD/TT: 07/24/24 0946 ? General Practitioner: ? Procedure Note Jesse Vaca - 07/24/[address] [address] XRay Report Signed Patient: Sumanth Michele#: [id number] : 1970Acct:[id number] Age/Sex: 54 / MADM Date: 07/24/24 Loc: HO.HHCX Attending Dr: Wai Ramsey MD Ordering Physician: WAI RAMSEY MD Date of Service: 07/24/24 Procedure(s): XR wrist RT min 3V Accession Number(s): [id number] cc: WAI RAMSEY MD EXAMINATION: XR WRIST 3 OR MORE VIEWS RIGHT HISTORY: atraumatic right wrist pain over extensor surface radial side. COMPARISON: Comparison is made with the prior examination dated 01/02/2014. FINDINGS: Four views of the right wrist including a scaphoid view are submitted. Osseous mineralization is normal. There is no fracture or dislocation. The joint spaces are preserved. The soft tissues are unremarkable. XR/XR wrist RT min 3V IMPRESSION: Unremarkable examination of the right wrist. Electronically signed by: Montez Gonzalez MD 07/24/2024 10:02 AM EDT RP Dictated By: Montez Gonzalez MD Signed By: <Electronically signed by Montez Gonzalez MD in OV> 07/24/24 1002 DD/ 0938 TD/TT: 07/24/24 0946 General Practitioner: Wai Ramsey MD IMG XR PROCEDURES Final Result documented in this encounter Visit Diagnoses Diagnosis Right wrist pain- Primary Pain in joint, forearm Elevated blood pressure reading in office without diagnosis of hypertension documented in this encounter Care Teams Plant Sciences Professor Relationship Specialty Start Date End Date Tram Porter MD [address] [place] [phone] PCP - General Family Medicine 09/13/18 documented as of this encounter
--- OUTSIDE RECORDS SUMMARY | 2024-07-24 10:18 | XMS_ITS | Clinical Summary ---
Author Organization [employer] Address [address] [facility] 7[address] [place] [address] Care Team Providers Care Intensive Care Nurse Name Role Phone Tram Porter MD Primary Care Provider + Allergies No known active allergies Medications atorvastatin (Lipitor) 80 MG tablet Take 1 tablet by mouth at bed time. 05/30/19 21 Active cyclobenzapri ne (Flexeril) 10 MG tablet take 1-2 tablet by oral qhs 05/27/19 21 Active ibuprofen 400 MG tablet take 1-2 tablet by oral route every 4 - 6 hours as needed 09/30/19 21 Active ergocalcifero l (Vitamin D-2) 1.25 MG (40006 UT) capsule take 1 capsule by oral route every week 05/30/19 21 Active nicotine polacrilex (Nicorette) 4 MG gum DISCONTINUE 08/01/19 22 Active amoxicillin (Amoxil) 500 MG capsule Take 1 tab po bid for 10 days 20 capsule 03/20/19 25 Active lidocaine (Lidoderm) 5 % patch Apply 1 patch topically Once per day. Remove & discard patch within 12 hours or as directed by . 30 patch 2 07/25/19 25 026 Active acetaminophen (Tylenol) 500 MG tablet Take 2 tablets (1,000 mg) by mouth every 6 (six) hours if needed for moderate pain or fever. 30 tablet 07/25/19 25 Active Blood Pressure kit 1 each 2 times daily. 1 kit 07/25/19 25 026 Active Blood Pressure kit 1 each 2 times daily. 1 kit 07/25/19 25 025 Discontinued(Re order (will not trigger notification to Pharmacy)) Active Problems Problem Noted Date Diagnosed Date [...] Encounter for assessment of STD exposure 025 Assessment & Plan (04/26/2024 10:52 AM EST): Advised re condom use at all times during intercourse. Order STI testing Viral upper respiratory infection 03/20/2024 Assessment & [...] Encounters Date Type Department Care Team Description 07/24/2024 9:00 AM EDT Office Visit [facility] [address] [place] [phone] Right wrist pain (Primary Dx); Elevated blood pressure reading in office without diagnosis of hypertension 06/26/2024 Telephone [facility] [address] [place] [phone] Tram Porter MD No Show 06/22/[address] [address] Tram Porter MD Chart prep 06/15/2024 Patient Outreach [address] [address] Tram Porter MD Pre-visit Planning (SDOH screening completed on 04/26/2024) 05/25/2024 Population Health Risk Score Community [facility] ([facility]) Department [address] [phone] Provider, Population Health Generic 05/17/2024 1:15 PM EST Office Visit [facility] [address] [place] [address] Eugene, Natalee, OD Presbyopia (Primary Dx) 04/26/2024 9:45 AM EST Office Visit [address] [address] Tram Porter MD Carpal tunnel syndrome of right wrist (Primary Dx); Other hyperlipidemia; Vitamin D deficiency; Screening for colorectal cancer; Elevated blood pressure reading; Overweight; Encounter for assessment of STD exposure; Dietary counseling; Exercise counseling 04/26/2024 Travel from Last 3 Months Family History Medical [...] oz) 07/24/2024 8:47 A M EDT Height 170.2 cm (5' 7 ) 04/26/2024 9:35 AM EST Body Mass Index 29.51 04/26/2024 9:35 AM EST Plan of Treatment Upcoming Encounters Date Type Department Care Team (Late st Contact Info) Description 10/11/2024 9:00 AM EDT Office Visit [facility] [address] [place] [address] Tram Porter MD [address] [place] [address] Health Maintenance Due Date Last Done Comments CT Colonography 1969 FIT DNA/Cologuard 1969 FIT 1969 FOBT 1970 Sigmoidoscopy 1970 Hepatitis B Vaccines (1 of 3 - 19+ 3-dose series) 01/31/1988 Pneumococcal Vaccine: 50+ Years (1 of 1 - PCV) 2019 Zoster Vaccines (1 of 2) 2019 DTaP/Tdap/Td Vaccines (2 - Td or Tdap) 02/24/2020 02/23/2010 Colonoscopy 12/24/2021 12/24/2020 Colorectal Cancer Screening 12/24/2021 COVID-19 Vaccine ( season) 2023 02/28/2022, 02/28/2021, 08/04/2020, Additional history exists Influenza Vaccine (#1) 2023 6, 01/15/2013, 02/23/2010 SDOH Screening 04/13/2025 04/13/2024 Alcohol/Substance Use Screening 04/26/2025 04/26/2024 Depression Screening 04/26/2025 04/26/2024, 04/26/19 25 Tobacco Screening 07/24/2025 07/24/2024 Lipid Panel 04/26/2029 04/26/2024, 05/27/2020 RSV Patients and Patients Aged 60 years or older (1 - 1-dose 75+ series) 01/31/2044 HIV Screening Completed 04/26/2024 Hepatitis C Screening Completed 04/26/2024 HIB Vaccines Aged Out No longer eligi [...] 07/24/2024 9:38 AM EDT Right wrist pain VITAMIN D,25-OH,TOTAL,IA Routine 04/26/2024 10:12 AM EST Vitamin D deficiency HEPATITIS PANEL, GENERAL Routine 04/26/2024 10:12 AM EST Encounter for assessment of STD exposure HIV 1/2 ANTIGEN/ANTIBODY, FOURTH GENERATION W/RFL Routine 04/26/2024 10:12 AM EST Encounter for assessment of STD exposure SYPHILIS SCREEN Routine 04/26/2024 10:12 AM EST Encounter for assessment of STD exposure CBC WITH AUTO DIFFERENTIAL Routine 04/26/2024 10:12 AM EST Elevated blood pressure reading COMPREHENSIVE METABOLIC PANEL Routine 04/26/2024 10:12 AM EST Elevated blood pressure reading T-SPOT(R).TB Routine 04/26/2024 10:12 AM EST Elevated blood pressure reading TSH W/REFLEX TO FT4 Routine 04/26/2024 1 0:12 AM EST Elevated blood pressure reading LIPID PANEL WITH REFLEX TO DIRECT LDL Routine 04/26/2024 10:12 AM EST Other hyperlipidemia Elevated blood pressure reading HM COLONOSCOPY Routine 12/24/2020 8:49 AM EDT from Last 3 Months or Most Recently Relevant to Health Maintenance Results * XR Wrist 3+ Views Right (07/24/2024 9:38 AM EDT) Anatomical Region Laterality Modality Upper Extremities, Wrist Right Radiogr aphic Imaging 07/24/2024 9:38 AM EDT Narrative 07/24/2024 10:04 AM EDT ?[facility] ?[address] ?[place] [address] ?XRay Report ? Signed ? Patient: Michele,Sumanth ?MR#: [id number] ? : 1970 ?Acct:[id number] ? Age/Sex: 54 / M ?ADM Date: 07/24/24 ? Loc: HO.HHCX ? Attending Dr: Wai Ramsey MD ? Ordering Physician: WAI RAMSEY MD ?? Date of Service: 07/24/24 ?? Procedure(s): XR wrist RT min 3V ?? Accession Number(s): [id number] ? cc: WAI RAMSEY MD ? EXAMINATION: [...] DD/ 0938 ? TD/TT: 07/24/24 0946 ? [employer] Etch Operator: ? Procedure Note Lio, Image - 07/24/2024 [facility] [address] [place] [address] XRay Report Signed Patient: Sumanth MicheleMR#: [id number] : 1970Acct:[id number] Age/Sex: 54 / MADM Date: 07/24/24 Loc: HO.HHCX Attending Dr: Wai Ramsey MD Ordering Physician: WAI RAMSEY MD Date of Service: 07/24/24 Procedure(s): XR wrist RT min 3V Accession Number(s): [id number] cc: WAI RAMSEY MD EXAMINATION: XR WRIST [...] Montez Gonzalez MD 07/24/2024 10:02 AM EDT Dictated By: Montez Gonzalez MD Signed By: <Electronically signed by Montez Gonzalez MD in OV> 07/24/24 1002 DD/ 0938 TD/TT: 07/24/24 0946 [employer] Operator: us Wai Ramsey MD IMG XR PROCEDURES Final Result * Syphilis Screen (04/26/2024 10:12 AM EST) Syphilis Screen Nonreactive Nonreactive [facility] Blood 04/26/2024 10:1 2 AM EST 04/26/2024 11:15 AM EST us Tram Porter MD LAB BLOOD ORDERABLES Fin al Result [facility] [address] [place] [phone] * (ABNORMAL) Vitamin D, 25-Hydroxy, Total, Immunoassay (04/26/2024 10:12 AM EST) Vitamin D 25-OH Total 16.5(L) >30 ng/mL [facility] Comment:Health Based Referen ce Values*< 20 ng/mL [id number] ng/mL Insufficient> 30 ng/mL Sufficient*Dashawn BERMUDEZ. N Engl J Med. 2007;357:266-280Care must be taken in interpreting Vitamin D results fromdifferent laboratories and methodologies. Published datademonstrated that results from patients undergoinghemodialysis may show a negative bias when tested withvarious automated 25-OH vitamin D assays when compared toLC-MS/MS.When testing samples from patients whose predominant form ofVitamin D is Vitamin D2, such as patients receiving VitaminD2 supplementation, results that are subtherapeutic shouldbe confirmed with another method such as LC-MS/MS. Blood 04/26/2024 10:1 2 AM EST 04/26/2024 11:15 AM EST us Tram Porter MD LAB BLOOD ORDERABLES Fin al Result [facility] [address] [place] [phone] * T-SPOT??.TB (04/26/2024 10:12 AM EST) T Spot TB Negative Negative [facility] Comment:A negative test resu lt does not exclude the possibilityof exposure to or infection with Mycobacteriumtuberculosis (M. tuberculosis). Patients with recentexposure to TB infected individuals exhibiting anegative T-SPOT.TB result should be considered forretesting within 6 weeks or if other relevant clinicalsymptoms indicate. Results from T-SPOT.TB testing mustbe used in conjunction with each individual'sepidemiological history, current medical status,and results of other diagnostic evaluations.The T-SPOT.TB test is qualitative and results arereported as positive, borderline, or negative, giventhat the test controls perform as expected. In linewith the Centers for Disease Control and Prevention's2010 recommendation to report quantitative measurementsalongside the qualitative result, the laboratoryprovides spot counts for informational purposes only.The T-SPOT.TB test should not be interpreted as aquantitative test. TS PANEL A [address] [facility] TS PANEL B [address] [facility] Negative Control Passed [facility] Positive Control Passed [facility] Comment:For additional infor sven, please refer tohttp://education.[employer]/faq/KRI192(This link is being provided for informational/educational purposes only.)THIS TEST WAS PERFORMED AT:[employer] [id number] [place] [id number] KURTZ MD,PHD 04/26/2024 10:1 2 AM EST 04/26/2024 11:15 AM EST us Tram Porter MD LAB BLOOD ORDERABLES Fin al Result Performing Organization Address City/[facility]/ZIP Co de Phone Number [facility] [address] [place] [phone] * TSH with Reflex to Free T4 (04/26/2024 10:12 AM EST) TSH reflex Free T4 1.71 0.32 - 4.0 uIU/mL [facility] Blood 04/26/2024 10:1 2 AM EST 04/26/2024 11:15 AM EST us Tram Porter MD LAB BLOOD ORDERABLES Fin al Result Performing Organization Address [facility]/ZIP Co de Phone Number [facility] [address] [place] [phone] * (ABNORMAL) Lipid Panel with Reflex to Direct LDL (04/26/2024 10:12 AM EST) Triglycerides 89 <150 mg/dL [facility] Comment:Desirable Triglyceri de: less than 150 mg/dLBorderline High Triglyceride 150-199 mg/dLHigh Triglyceride: 200-499 mg/dLVery High Triglyceride: greater than or equal to 5OO mg/dL Cholesterol 269(H) <200 mg/dL [facility] Comment:Desirable Cholestero l: less than 200 mg/dLBorderline High Cholesterol: 200-239 mg/dLHigh Cholesterol: greater than 239 mg/dL LDL Cholesterol Calculated 193(H) <100 mg/dL [facility] Comment:Desirable LDL: less than 100 mg/dLNear Optimal/Above Optimal LDL: 110- 129 mg/dLBorderline High LDL: 130-159 mg/dLHigh LDL: 160-189 mg/dLVery High LDL: greater than or equal to 190 mg/dL HDL Cholesterol 59 >40 mg/dL [facility] Comment:Desirable HDL: great er than 40 mg/dL Note: This HDL assay may give artificially low results in patients with liver disease. Blood 04/26/2024 10:1 2 AM EST 04/26/2024 11:15 AM EST us Tram Porter MD LAB BLOOD ORDERABLES Fin al Result [facility] [address] [place] [address] [phone] * Hepatitis Panel, General (04/26/2024 10:12 AM EST) Hepatitis A IgM Nonreactive Nonreactive [facility] Comment:IgM antibodies to ARRIOLA V not detected; does not exclude earlyacute or recovered HAV infection. ~Hepatitis B Surface Antibody NONREACTIVE Nonreactive [facility] Comment:Nonreactive: < 8.00 mIU/mL Hepatitis B Core Antibody Nonreactive Nonreactive [facility] Hepatitis C Antibody Nonreactive Nonreactive [facility] Comment:Antibodies to HCV no t detected; does not exclude early acuteHCV infection. Hepatitis B Surface Ag Negative Negative [facility] Blood 04/26/2024 10:1 2 AM EST 04/26/2024 11:15 AM EST us Tram Porter MD LAB BLOOD ORDERABLES Fin al Result [facility] [address] [place] [phone] [phone] * CBC auto differential (04/26/2024 10:12 AM EST) White Blood Count 6.5 4.8 - 10.8 X10*3/uL [facility] Red Blood Count 5.80 4.60 - 5.80 X10*6/uL [facility] Hemoglobin 16.4 14.0 - 18.0 g/dl [facility] Hematocrit 50.4 42.0 - 52.0 % [facility] Mean Corpuscular Volume 86.9 80.0 - 98.[address] [facility] Mean Corpuscular Hemoglobin 28.3 27.0 - 33.[address] [facility] Mean Corpuscular HGB Conc 32.5 31.0 - 36.0 g/dl [facility] Red Cell Distribution Width 13.4 11.0 - 16.0 % [facility] Platelet Count 302 160 - 400 X10*3/uL [facility] Mean Platelet Volume 9.8 9.4 - 12.[address] [facility] Neutrophils Percent Auto 65.3 45 - 73 % [facility] Imm Gran Pct Auto 0.3 0.0 - 0.4 % [facility] Lymphocytes Percent Auto 23.7 20 - 40 % [facility] Monocytes Percent Auto 9.3 2 - 11 % [facility] Eosinophils Percent Auto 0.9 0 - 4 % [facility] Basophils Percent Auto 0.5 0 - 2 % [facility] NRBC Pct Auto 0.0 0.0 - 0.2 /100WBC [facility] Neutrophils Absolute Auto 4.3 2.0 - 8.3 x10*3/uL [facility] Imm Gran Abs Auto 0.02 0.00 - 0.03 X10*3/uL [facility] Lymphocytes Absolute Auto 1.6 1.2 - 4.9 X10*3/uL [facility] Monocytes Absolute Auto 0.6 0.1 - 1.2 X10*3/uL [facility] Eosinophils Absolute Auto 0.1 0.0 - 0.4 X10*3/uL [facility] Basophils Absolute Auto 0.0 0.0 - 0.2 X10*3/uL [facility] NRBC Abs Auto 0.000 0.0 - 0.012 X10*3/uL [facility] Blood Venous blood specimen / Unknown 04/26/2024 10:12 AM EST 04/26/2024 11:15 AM EST Tram Porter MD LAB BLOOD ORDERABLES Fin al Result Performing Organization Address [facility] Co de Phone Number [facility] [address] [place] [phone] * HIV-1/2 Antigen and Antibodies, Fourth Generation, with Reflexes (04/26/2024 10:12 AM EST) HIV AB/AG Nonreactive Nonreactive [facility] Comment:HIV-1 p24 Ag and/or HIV-1/HIV-2 Ab not detected.A test result that is nonreactive does not exclude thepossibility of exposure to or infection with HIV-1 and/orHIV-2. Nonreactive results in this assay for individualswith prior exposure to HIV-1 and/or HIV-2 may be due toantigen and antibody levels that are below the limit ofdetection of this assay.[employer] HIV Ag/Ab Combo assay result andsupplemental assay results should be interpreted inconjunction with the patient's clinical presentation,history and other laboratory results. If the results areinconsistent with clinical evidence, additional testing issuggested to confirm the result. Blood Venous blood specimen / Unknown 04/26/2024 10:12 AM EST 04/26/2024 11:15 AM EST us Tram Porter MD LAB BLOOD ORDERABLES Fin al Result Performing Organization Address City/[facility]/ZIP Co de Phone Number [facility] [address] [place] [phone] [phone] * (ABNORMAL) Comprehensive Metabolic Panel (04/26/2024 10:12 AM EST) [facility] Sodium 141 135 - 145 mmol/L [facility] Potassium 4.0 3.3 - 5.1 mmol/L [facility] Chloride 106 96 - 108 mmol/L [facility] Carbon Dioxide 26 22 - 29 mmol/L [facility] Anion Gap 13 12 - [address] [facility] Urea Nitrogen (BUN) 18(H) 9 - 16 mg/dL [facility] Creatinine, Serum 0.80 0.5 - 1.4 mg/dL [facility] Estimated Glomerular Filt Rate >[address] [facility] Comment:Chronic Kidney Disea se: Estimated GFR < 60 mL/min/[id number] Kidney Disease: Estimated GFR < 15 mL/min/1.73m2 Glucose 99 60 - 115 mg/dL [facility] Calcium 9.6 8.4 - 10.2 mg/dL [facility] Bilirubin, Total 0.6 0.0 - 1.0 mg/dL [facility] Aspartate Amino Transferase 25 5 - 37 U/L [facility] Alanine Aminotransferase 38 0 - 40 U/L [facility] Total Protein 7.9 6.5 - 8.0 g/dL [facility] Albumin Level 4.4 3.5 - 5.0 g/dL [facility] Alkaline Phosphatase 69 39 - 117 U/L [facility] Blood Venous blood specimen / Unknown 04/26/2024 10:12 AM EST 04/26/2024 11:15 AM EST us Tram Porter MD LAB BLOOD ORDERABLES Fin al Result [facility] [address] [place] [phone] * Hm Colonoscopy (12/24/2020 8:49 AM EDT) Colonoscopy Normal Normal Narrative Luz Ceron - 12/24/2020 8:49 AM EDT Recommended 1 year follow up us Historical Provider HEALTH MAINTENANCE Edited Result - Final from Last 3 Months or Most Recently Relevant to Health Maintenance Insurance [facility] C3 Care Teams Intensive Care Nurse Relationship Specialty Start Date End Date Tram Porter MD [address] [place] [phone] PCP - General Family Medicine 09/13/18
--- OUTSIDE RECORDS SUMMARY | 2024-07-24 10:18 | XMS_ITS | Encounter Summary ---
Author Organization [employer] Address [address] [facility] 7[address] [place] [address] Care Team Providers Care Curtain Inspector Name Role Phone Tram Porter MD Primary Care Provider + Encounter Details Date Type Department Care Team (Late Contact Info) Description 08/27/2022 Abstract [facility] [address] [place] [phone] Tram Porter MD [address] [place] [phone] Social History Tobacco Use Types Packs/Day Years [...] Department Care Team (Late Contact Info) Description 10/11/2024 9:00 AM EDT Office Visit [facility] [address] [place] [phone] Tram Porter MD [address] [place] [address] [phone] documented as of this encounter Procedures Procedure [...] on filedocumented in this encounter Care Teams Curtain Inspector Relationship Specialty Start Date End Date Tram Porter MD [address] [place] [phone] PCP - General Family Medicine 09/13/18 documented as of this encounter
--- OUTSIDE RECORDS SUMMARY | 2024-07-24 10:18 | XMS_ITS | Continuity of Care Document ---
Author Organization [facility] Address [address] [address] [place] [phone] Phone Care Team Providers Care Research Assistant Name Role Phone Steven Ferris Unavailable Unavailable Procedures Procedure Date Balance Forward Advance Directives Directive Yes / No Effective Date File Name No Information Encounters Encounter Description Practice Location Reason(s) For Visit Diagnoses Date Provider Providers Copied on Encounter [facility], [address] [address], [place], [place], [id number], [place] tel:[phone] Allen [facility] No Information [place] Steven. [address] [facility] [place], [id number], [place]. tel:[phone] Family History Family Member Type Diagnosis Age At Onset No Information Payers Payer name Insurance type Covered alliance party ID Authoriza tion(s) No Information Social History Type Description Quantity Date Captured Comments Sex Male Smoking Status No Information Chief Complaint And Reason For Visit No Information Reason For Referral Reason For Referral No Information History Of Present Illness Encounter Date Complaint History Of Prese nt Illness No Information Functional Status Date Functional Assessmen t No Information Instructions Date Instruction Additional Infor mation No Information Assessments Type Assessment Date No Information Patient Care Teams Name Effective Dates (start - stop) Status Members No Information
== END 2024-07-24 09:38 | disposition home or self-care (01) ==
LOC: HO.HHCX 09:37
PROVIDERS: Visit Provider Emergency Medicine
DX: M25.531 Pain in right wrist (principal)
CPT/HCPCS: 73110

== ENCOUNTER → 2024-07-24 09:38 | Outpatient (BNV) | payer MEDICAID, SELFPAY | PROVIDERS: Visit Provider Radiology Diagnostic Radiology | DX: M25.531 Pain in right wrist (principal) | CPT/HCPCS: 73110 ==

== ENCOUNTER 2025-02-22 19:50 | Emergency (ER) | payer MEDICAID, SELFPAY ==
--- OUTSIDE RECORDS SUMMARY | 2017-10-11 19:00 | XMS_ITS | Continuity of Care Document ---
Author Organization [facility] Address [address] [address] [place] [address] Phone Care Team Providers Care Communication Engineer Name Role Phone Steven Ferris Unavailable Unavailable Procedures Procedure Date Balance Forward Advance Directives Directive Yes / No Effective Date File Name No Information Encounters Encounter Description Practice Location Reason(s) For Visit Diagnoses Date Provider Encounter Disposition [facility], [address] [address], [place], [place], [id number], tel:[phone] [facility] No Information [address] [facility] [place], [id number] , [place]. tel: [phone] Family History Family Member Type Diagnosis Age At Onset No Information Payers Payer name Insurance type Identifiers Authorization(s) Com ments No Information Social History Type Description Quantity Date Captured Comments Sex Male Smoking Status No Information Current Gender Male (finding) Chief Complaint And Reason For Visit No Information History Of Present Illness Encounter Date Complaint History Of Prese nt Illness No Information Functional Status Date Description Comments No Information Instructions Date Instruction Additional Infor mation No Information Assessments Type Assessment Date No Information
--- NOTE | ~2025-02-22 | XR_ITS ---
CLINICAL HISTORY: chest pain 2 view chest x-ray Comparison: None provided Findings: The lungs are clear. Heart size is normal. No acute fracture. IMPRESSION: 1. No acute findings. This document has been electronically signed by: Thai Osman MD on 02/22/2025 21:27:50
--- NOTE | 2025-02-22 19:54 | ECG_ITS ---
Test Reason : CP Blood Pressure : */* mmHG Vent. Rate : 74 BPM Atrial Rate : 74 BPM P-R Int : 134 ms QRS Dur : 98 ms QT Int : 372 ms P-R-T Axes : 24 -18 7 degrees QTcB Int : 412 ms Normal sinus rhythm Minimal voltage criteria for LVH, may be normal variant ( R in aVL ) Borderline ECG When compared with ECG of 19-Dec-2008 10:49, No significant changes seen Referred By: Oralia Schneider Electronically Signed By: CONSUELO BOLANOS MD
[2025-02-22 20:05] VITALS: BP 148/69; PULSE 82; RESP 18; TEMP 37; O2SAT 98; BMI 32.9
--- NOTE | 2025-02-22 20:07 | ED_ITS ---
HPI - General Adult General Chief complaint: Chest Pain Stated complaint: Chest pain and SOB Time Seen by Provider: 02/22/25 23:17 Related Data Home Medications ?Medication ?Instructions ?Recorded ?Confirmed atorvastatin 80 mg tablet 80 mg PO DAILY 12/17/2009/01 cyclobenzaprine 10 mg tablet 10 mg PO BEDTIME 12/17/20 12/17/20 ergocalciferol (vitamin D2) 1,250 1,250 mcg PO QWEEK 1 12/17/20 mcg (50,000 unit) capsule (Vitamin D2) ibuprofen 400 mg tablet 400 mg PO Q6H PRN Pain 12/1712/17/20 Previous Rx's ?Medication ?Instructions ?Recorded peg-electrolyte solution 420 gram 240 ml PO ONCE 1 day #4,000 mL 10/22/20 oral solution (TriLyte With Flavor Packets) bisacodyl 5 mg tablet,delayed 10 mg (2 x 5 mg) PO ONCE Bowel 12/23/20 release (Dulcolax (bisacodyl)) Preparation 1 day #2 ta bs polyethylene glycol 3350 17 238 g PO ONCE 1 day #238 g aster 12/23/20 gram/dose oral powder (Miralax) ketorolac 10 mg tablet 10 mg PO QID PRN pain #20 ta bs 02/23/25 methocarbamol 750 mg tablet 750 mg PO Q8H PRN pain, mo derate 02/23/25 #15 tabs Allergies Allergy/AdvReac Type Severity Reaction Status Date / Time No Known Allergies Allergy Verified 02/22/25 20:09 [facility] Past Medical History Medical History (Updated 02/23/25 @ 00:47 by JOSÉ LUIS Clarke) Vitamin D deficiency Right shoulder pain Hyperlipidemia History of back pain Arthritis Anxiety and depression Surgical History (System 05/17/24 @ 15:25 by Prachi Chisholm CNA) History of bilateral carpal tunnel release History of left inguinal hernia repair Family History Family History Brother Cancer Maternal Aunt Cancer Diabetes Social History Social History (System 05/17/24 @ 15:25 by Prachi Chisholm CNA) Household Members: Significant Other Alcohol intake: current Patient Tobacco Use Status: Never used Tobacco Advance Directives: No Advance Directives Information Provided: Yes Current occupational status: employed Physical Exam ED Vital Signs: Vital Signs - 24 hr 02/22/25 20:05 Temperature 98.6 F Pulse Rate 82 Respiratory Rate 18 Blood Pressure 148/69 H Pulse Oximetry 98 Oxygen Delivery Method Room Air BMI result Body Mass Index 32.9 Course Course Course Narrative: Rapid medical examination performed in triage by Oralia Schneider PA-C: Patient is a 55 year old assigned male at presenting to the emergency department with chest pain. Detailed physical exam and review of systems are deferred to the health type technician. EKG, labs, imaging, swabs ordered. Patient placed back in the waiting room pending room availability and results. Medical Decision Making Lab Data 02/22/25 20:21 02/22/25 20:21 Labs: Lab Results 02/22/25 Range/Units 20:21 WBC 13.0 H (4.8-10.8) X10*3/uL RBC 5.82 H (4.60-5.80) X10*6/uL Hgb 16.3 (14.0-18.0) g/dl Hct 50.6 (42.0-52.0) % MCV 86.9 (80.0-98.0) fL MCH 28.0 (27.0-33.0) pg MCHC 32.2 (31.0-36.0) g/dl RDW 13.3 (11.0-16.0) % Plt Count 333 (160-400) X10*3/uL MPV 9.6 (9.4-12.4) fL Immature Gran % (Auto) 0.3 (0.0-0.4) % Neut % (Auto) 60.3 (45-73) % Lymph % (Auto) 27.1 (20-40) % [place] % (Auto) 9.7 (2-11) % Eos % (Auto) 2.1 (0-4) % Baso % (Auto) 0.5 (0-2) % Lymph # (Auto) 3.5 (1.2-4.9) X10*3/uL [place] # (Auto) 1.3 H (0.1-1.2) X10*3/uL Eos # (Auto) 0.3 (0.0-0.4) X10*3/uL Baso # (Auto) 0.1 (0.0-0.2) X10*3/uL Abs Immat Gran (auto) 0.04 H (0.00-0.03) X10*3/uL Absolute Neuts (auto) 7.9 (2.0-8.3) x10*3/uL Absolute Nucleated RBC 0.000 (0.0-0.012) X10*3/uL Nucleated RBC % (auto) 0.0 (0.0-0.2) /100WBC Sodium 141 (135-145) mmol/L Potassium 3.9 (3.3-5.1) mmol/L Chloride 105 (96-108) mmol/L Carbon Dioxide 29 (22-29) mmol/L Anion Gap 11 L (12-20) BUN 24 H (9-16) mg/dL Creatinine 0.86 (0.5-1.4) mg/dL Estim Creat Clear Calc 98.6 Estimated GFR > 60 Random Glucose 107 (60-115) mg/dL Calcium 9.6 (8.4-10.2) mg/dL Magnesium 2.3 (1.6-2.6) mg/dL Total Bilirubin 0.4 (0.0-1.0) mg/dL AST 34 (5-37) U/L ALT 46 H (0-40) U/L Alkaline Phosphatase 78 (39-117) U/L Troponin I High Sens < 2.7 (<3.5-35.0) ng/L NT-Pro-B Natriuret Pep < 15.8 (<300) pg/mL Total Protein 7.7 (6.5-8.0) g/dL Albumin 4.6 (3.5-5.0) g/dL Influenza Type A (PCR) NEGATIVE (Negative) Influenza Type B (PCR) NEGATIVE (Negative) RSV RNA Qual (PCR) NEGATIVE (Negative) SARS-CoV-2 RNA (RT-PCR) NEGATIVE (Negative) Discharge Plan Discharge Clinical Impression: Chest wall pain Patient Disposition: Home, Self-Care Instructions: Chest Wall Pain (ED) Additional Instructions: Your discomfort is consistent with chest wall pain. See home care instructions. Use the ketorolac as directed this is an anti-inflammatory take it with food. Use the methocarbamol as needed for further pain, this is a muscle relaxant. This medication will cause drowsiness do not drive or operate machinery while taking the medication. All of your screening labs including a cardiac enzymes were normal. There were no concerning changes on the EKG in the chest x-ray is clear. Follow up with primary care as needed. Prescriptions: New ketorolac 10 mg tablet 10 mg PO QID PRN (Reason: pain) Qty: 20 0RF Rx Instructions: maximum total duration of 5 days from all oral, intranasal, or parenteral formulations, the patient received an intramuscular dose of Toradol here in the emergency room methocarbamol 750 mg tablet 750 mg PO Q8H PRN (Reason: pain, moderate) Qty: 15 0RF No Action bisacodyl [Dulcolax (bisacodyl)] 5 mg tablet,delayed release (DR/EC) 10 mg PO ONCE 1 Days Qty: 2 0RF Rx Instructions: Take 2 tablets at 12:00pm the day before your procedure, bowel prep polyethylene glycol 3350 [Miralax] 17 gram/dose powder 238 g PO ONCE 1 Days Qty: 238 0RF Rx Instructions: Take as directed by mouth, bowel prep cyclobenzaprine 10 mg Tablet 10 mg PO BEDTIME atorvastatin 80 mg Tablet 80 mg PO DAILY ibuprofen 400 mg Tablet 400 mg PO Q6H PRN (Reason: Pain) ergocalciferol (vitamin D2) [Vitamin D2] 1,250 mcg (50,000 unit) Capsule 1,250 mcg PO QWEEK peg-electrolyte soln [TriLyte With Flavor Packets] 420 gram recon soln 240 ml PO ONCE 1 Days Qty: 4000 0RF Rx Instructions: Start at 6:00pm the evening before procedure, drink one 8oz glass every 15 minutes until complete Print Language: German
[2025-02-22 20:26] LABS: MANUAL DIFF FLAG NO
[2025-02-22 20:40] LABS: Alanine Aminotransferase 46 U/L (0-40); Albumin Level 4.6 g/dL (3.5-5.0); Alkaline Phosphatase 78 U/L (39-117); Anion Gap 11 (12-20); Aspartate Amino Transferase 34 U/L (5-37); Blood Urea Nitrogen 24 mg/dL (9-16); Calcium 9.6 mg/dL (8.4-10.2); Carbon Dioxide 29 mmol/L (22-29); Chloride 105 mmol/L (96-108); Creatinine Clr Calc Pharmacy 98.6; Estimated Glomerular Filt Rate > 60; Magnesium 2.3 mg/dL (1.6-2.6); Potassium 3.9 mmol/L (3.3-5.1); Sodium 141 mmol/L (135-145); Total Protein 7.7 g/dL (6.5-8.0)
[2025-02-22 20:41] LABS: Hematocrit 50.6 % (42.0-52.0); Hemoglobin 16.3 g/dl (14.0-18.0); Imm Gran Abs Auto 0.04 X10*3/uL (0.00-0.03); Imm Gran Pct Auto 0.3 % (0.0-0.4); Lymphocytes Absolute Auto 3.5 X10*3/uL (1.2-4.9); Mean Corpuscular HGB Conc 32.2 g/dl (31.0-36.0); Mean Corpuscular Hemoglobin 28.0 pg (27.0-33.0); Mean Corpuscular Volume 86.9 fL (80.0-98.0); NRBC Abs Auto 0.000 X10*3/uL (0.0-0.012); NRBC Pct Auto 0.0 /100WBC (0.0-0.2); Platelet Count 333 X10*3/uL (160-400); Red Blood Count 5.82 X10*6/uL (4.60-5.80); White Blood Count 13.0 X10*3/uL (4.8-10.8)
[2025-02-22 20:49] LABS: NT Pro B Type Natriuretic Pept < 15.8 pg/mL (<300)
[2025-02-22 21:06] LABS: Resp Syncy Virus RNA Qual PCR NEGATIVE (Negative); SARS COV2 PCR INHOUSE NEGATIVE (Negative)
[2025-02-22 22:23] LABS: Troponin-I High Sensitivity < 2.7 ng/L (<3.5-35.0)
--- OUTSIDE RECORDS SUMMARY | 2025-02-22 23:26 | XMS_ITS | Clinical Summary ---
Author Organization [employer] Address [address] [facility] [address] [place] [address] Care Team Providers Care Appliance Adjuster Name Role Phone Tram Porter MD Primary [...] 1 Active ergocalciferol (Vitamin D-2) 1.25 MG (99847 UT) capsule take 1 capsule by oral route every week 1 Active nicotine polacrilex (Nicorette) 4 MG gum DISCONTINUE 2 Active amoxicillin (Amoxil) 500 MG capsule Take 1 tab po bid for 10 days 20 capsule 5 Active lidocaine (Lidoderm) 5 % patch Apply 1 patch topically Once per day. Remove & discard patch within 12 hours or as directed by MD. 30 patch 2 5 07/25/19 26 Active acetaminophen (Tylenol) 500 MG tablet Take 2 tablets (1,000 mg) by mouth every 6 (six) hours if needed for moderate pain or fever. 30 tablet 5 Active Blood Pressure kit 1 each 2 times daily. 1 kit 5 07/25/19 26 Active Active Problems Problem Noted Date Diagnosed [...] outdoor exercise for at least 15 minutes. Family History Medical History Relation Name Comments [...] 76 07/24/2024 8:47 AM EDT Temperature 37 C (98.6 F) 07/24/2024 8:47 AM EDT Respiratory Rate 17 07/24/2024 8:47 AM EDT Oxygen Saturation 97% 07/24/2024 8:47 AM EDT Inhaled Oxygen Concentration - - Weight 85.5 kg (188 lb 6.4 oz) 07/24/2024 8:47 A M EDT Height 170.2 cm (5' 7 ) 04/26/2024 9:35 AM EST Body Mass Index 29.51 04/26/2024 9:35 AM EST Plan of Treatment Health Maintenance Due Date Last Done Comments CT Colonography 1969 FIT DNA/Cologuard 1969 FIT 1969 FOBT 1969 Sigmoidoscopy 1969 Disability Screening 1969 Hepatitis B Vaccines (1 of 3 - 19+ 3-dose series) 01/31/1988 Pneumococcal Vaccine: 50+ Years (1 of 1 - PCV) 2019 Zoster Vaccines (1 of 2) 2019 DTaP/Tdap/Td Vaccines (2 - Td or Tdap) 02/24/2020 02/23/2010 Colonoscopy 12/24/2021 12/24/2020, 12/24/2020 Colorectal Cancer Screening 12/24/2021 COVID-19 Vaccine ( season) 2024 02/28/2022, 02/28/2021, 08/04/2020, Additional history exists Influenza Vaccine (#1) 2024 6, 01/15/2013, 02/23/2010 SDOH Screening 04/13/2025 04/13/2024 [...] age to complete this topic Meningococcal B Vaccine Aged Out No l onger eligible based on patient's age to complete [...] Name Priority Date/Time Associated Diagnosis Comments HEPATITIS PANEL, GENERAL Routine 04/26/2024 10:12 AM EST Encounter for assessment of STD exposure HIV 1/2 ANTIGEN/ANTIBODY, FOURTH GENERATION W/RFL Routine 04/26/2024 10:12 AM EST Encounter for assessment of STD exposure LIPID PANEL WITH REFLEX TO DIRECT LDL Routine 04/26/2024 10:12 AM EST Other hyperlipidemia Elevated blood pressure reading HM COLONOSCOPY Routine 12/24/2020 8:49 AM EDT from Last 3 Months or Most Recently Relevant to Health Maintenance Results * (ABNORMAL) Lipid Panel with Reflex to Direct LDL (04/26/2024 10:12 AM EST) Triglycerides 89 <150 mg/dL [facility] Comment:Desirable Triglyceri de: less than 150 mg/dLBorderline High Triglyceride 150-199 mg/dLHigh Triglyceride: 200-499 mg/dLVery High Triglyceride: greater than or equal to 5OO mg/dL Cholesterol 269(H) <200 mg/dL [facility] Comment:Desirable Cholestero l: less than 200 mg/dLBorderline High Cholesterol: 200-239 mg/dLHigh Cholesterol: greater than 239 mg/dL LDL Cholesterol Calculated 193(H) <100 mg/dL [facility] Comment:Desirable LDL: less than 100 mg/dLNear Optimal/Above Optimal LDL: 110- 129 mg/dLBorderline High LDL: 130-159 mg/dLHigh LDL: 160-189 mg/dLVery High LDL: greater than or equal to 190 mg/dL HDL Cholesterol 59 >40 mg/dL [facility] Comment:Desirable HDL: great er than 40 mg/dL Note: This HDL assay may give artificially low results in patients with liver disease. Blood 04/26/2024 10:1 2 AM EST 04/26/2024 11:15 AM EST Tram Porter MD LAB BLOOD ORDERABLES Fin al Result Performing Organization Address [facility] Co de Phone Number [facility] [address] [place] [phone] Hepatitis Panel, General (04/26/2024 10:12 AM EST) Hepatitis A IgM Nonreactive Nonreactive [facility] Comment:IgM antibodies to ARRIOLA V not detected; does not exclude earlyacute or recovered HAV infection. ~Hepatitis B Surface Antibody NONREACTIVE Nonreactive [facility] Comment:Nonreactive: < 8.00 mIU/mL Hepatitis B Core Antibody Nonreactive Nonreactive [facility] Hepatitis C Antibody Nonreactive Nonreactive [facility] Comment:Antibodies to HCV no t detected; does not exclude early acuteHCV infection. Hepatitis B Surface Ag Negative Negative [facility] Blood 04/26/2024 10:1 2 AM EST 04/26/2024 11:15 AM EST Tram Porter MD LAB BLOOD ORDERABLES Fin al Result Performing Organization Address [facility] Co de Phone Number [facility] [address] [place] [phone] * HIV-1/2 Antigen and Antibodies, Fourth Generation, with Reflexes (04/26/2024 10:12 AM EST) HIV AB/AG Nonreactive Nonreactive [facility] Comment:HIV-1 p24 Ag and/or HIV-1/HIV-2 Ab not detected.A test result that is nonreactive does not exclude thepossibility of exposure to or infection with HIV-1 and/orHIV-2. Nonreactive results in this assay for individualswith prior exposure to HIV-1 and/or HIV-2 may be due toantigen and antibody levels that are below the limit ofdetection of this assay.The [employer] HIV Ag/Ab Combo assay result andsupplemental assay results should be interpreted inconjunction with the patient's clinical presentation,history and other laboratory results. If the results areinconsistent with clinical evidence, additional testing issuggested to confirm the result. Blood Venous blood specimen / Unknown 04/26/2024 10:12 AM EST 04/26/2024 11:15 AM EST Tram Porter MD LAB BLOOD ORDERABLES Fin al Result [facility] [address] [place] [phone] * Hm Colonoscopy (12/24/2020 8:49 AM EDT) Colonoscopy Normal Normal Narrative Luz Ceron - 12/24/2020 8:49 AM EDT Recommended 1 year follow up Historical Provider HEALTH MAINTENANCE Edited Result - Final from Last 3 Months or Most Recently Relevant to Health Maintenance Insurance [facility] C3 Care Teams Appliance Adjuster Relationship Specialty Start Date End Date Tram Porter MD [address] [place] [phone] PCP - General Family Medicine 09/13/18
--- OUTSIDE RECORDS SUMMARY | 2025-02-22 23:26 | XMS_ITS | Clinical Summary ---
Author Organization [employer] [facility] ity Address [address] [place] [address] Care Team Providers Care Placement Secretary Name Role Phone Sia Arriaza MD Primary Care Provider [phone] Allergies No known active allergies Medications diclofenac [...] weakness and no GI or complaints Immunizations Immunization Administration Dates Next Due Influenza trivalent, with pr eservative (Fluzone; Afluria) 6mo and older 01/15/2013,02/23/2010 Tdap Tetanus diptheria acell ular pertussis (Boostrix; Adacel) 7yo and older 02/23/2010 Surgical History Surgery Date Site/Laterality Comments OTHER SURGICAL HISTORY 2013 PROCEDURE: ---- OTHER ----; COMMENT: CTS b/l OTHER SURGICAL HISTORY 2014 PROCEDURE: ---- OTHER ----; COMMENT: left hernia Medical History Medical History Date Comments Cocaine abuse (CMS/HCC V24, CMS/HCC V28) 09/21/19 12 DX:Cocaine abuse ([facility]) Hyperlipidemia 12/16/2015 DX:Hyperlipidemi a Lumbar spondylosis 06/22/2016 DX:Lumbar spo ndylosis Family History Medical History Relation Name Comments Heart attack Father age 32 Cataracts Maternal Grandmother Other cancer Maternal Grandmother stomach Diabetes Mother brother Hypertension Mother Blindness Neg Hx Glaucoma Neg Hx Macular degeneration Neg Hx Strabismus Neg Hx Relation Name Status Comments Brother Alive High cholestero l Daughter Alive Father MD Maternal Grandmother Mother Alive DM, HTN Sister [...] on file Sexual Orientation Not on file Plan of Treatment Health Maintenance Due Date Last Done Comments Colorectal Cancer Screening: Colonoscopy 1969 Hepatitis B Vaccines (1 of 3 - 19+ 3-dose series) 01/31/1988 Pneumococcal Vaccine: 50+ Years (1 of 1 - PCV) 2019 Zoster Vaccines (1 of 2) 2019 DTaP,Tdap,and Td Vaccines (2 - Td or Tdap) 02/24/2020 02/23/2010 Cholesterol Screening (Lipid Panel) 03/12/2024 12/08/2015 Social Influencers of Health Screening 03/12/2024 Depression Screening 03/14/2024 COVID-19 Vaccine (1 - 2024-2 6 season) 2024 Influenza Vaccine (#1) 2024 3, 02/23/2010 RSV Immunization Adult Patients (1 - 1-dose 75+ series) 01/31/2044 HIV Screening Completed 12/08/2015 Hepatitis C Screening [...] * HIV Screening (12/08/2015) HIV Screening Abstracted [facility] Provider HEALTH MAINTENANCE Final Result * Hepatitis C Screening (12/08/2015) Hepatitis C Screening Abstracted [facility] Provider HEALTH MAINTENANCE Final Result * (ABNORMAL) Lipid panel (12/08/2015) LDL/HDL Ratio 4 0 - 4 Triglycerides 171(A) 0 - 150 mg/dL Cholesterol 304(A) 0 - 200 mg/dL HDL 69 >=40 mg/dL LDL Cholesterol 201(A) 0 - 100 mg/dL Blood Venous blood specimen / Unknown [facility] Provider LAB BLOOD ORDERABLES Bibiana l Result from Last 3 Months or Most Recently Relevant to Health Maintenance Care Teams Placement Secretary Relationship Specialty Start Date End Date Sia Arriaza MD [address] [place] [address] PCP - General Internal Medicine 10/19/16
--- OUTSIDE RECORDS SUMMARY | 2025-02-22 23:26 | XMS_ITS | Encounter Summary ---
Author Organization [employer] Address [address] [facility] [address] [place] [address] Care Team Providers Care Ux Developer Designer Name Role Phone Tram Porter MD Primary Care Provider + Encounter Details Date Type Department Care Team (Late st Contact Info) Description 08/27/2022 Abstract [facility] [address] [place] [address] Tram Porter MD [address] [place] [address] Social History Tobacco Use Types Packs/Day Years Used Date Smoking Tobacco: Never Smokeless Tobacco: Never Sex and Gender Information Value Date Recorded Sex Assigned at Male 01/11/2022 10:20 AM EDT Legal Sex Male 10:20 AM EDT Gender Identity Male 01/11/2022 10:20 AM EDT Sexual Orientation Straight 01/11/2022 10 :20 AM EDT documented as of this encounter Plan of Treatment Not on file documented as of this encounter Procedures Procedure Name Priority Date/Time Associated Diagnosis Comments COLONOSCOPY Routine 12/24/2020 8:49 AM EDT documented in this encounter Results * Hm Colonoscopy (12/24/2020 8:49 AM EDT) Colonoscopy Normal Normal Narrative Luz Ceron - 12/24/2020 8:49 AM EDT Recommended 1 year follow up Historical Provider HEALTH MAINTENANCE Edited Result - Final documented in this encounter Visit Diagnoses Not on filedocumented in this encounter Care Teams Ux Developer Designer Relationship Specialty Start Date End Date Tram Porter MD [address] [place] [phone] PCP - General Family Medicine 09/13/18 documented as of this encounter
[2025-02-23 01:06] VITALS: BP 148/69; PULSE 82; RESP 18; TEMP 37; O2SAT 98
[2025-02-23 01:28] VITALS: BP 148/69; PULSE 82; RESP 18; TEMP 37; O2SAT 98
== END 2025-02-23 01:29 | disposition home or self-care (01) ==
PROVIDERS: Physician Assistant Medical; Emergency Provider Emergency Medicine
DX: R07.89 Other chest pain (principal); R06.02 Shortness of breath; E78.5 Hyperlipidemia, unspecified; Z79.02 Long term (current) use of antithrombotics/antiplatelets; Z79.899 Other long term (current) drug therapy; Z03.818 Encounter for observation for suspected exposure to other biological agents ruled out
CPT/HCPCS: 71046; 80053; 83735; 83880; 84484; 85025; 87637; 93005; 96372; 99284; J1885

== ENCOUNTER → 2025-02-22 19:54 | Outpatient (BNV) | payer MEDICAID, SELFPAY | PROVIDERS: Emergency Provider Emergency Medicine; Visit Provider Internal Medicine Cardiovascular Disease | DX: R07.9 Chest pain, unspecified (principal) | CPT/HCPCS: 93010 ==

== ENCOUNTER → 2025-02-22 20:08 | Outpatient (BNV) | payer MEDICAID, SELFPAY | PROVIDERS: Visit Provider Radiology Diagnostic Radiology | DX: R07.9 Chest pain, unspecified (principal) | CPT/HCPCS: 71046 ==